=== PATIENT | female | born 1990 | race African-American/Black ===

== ENCOUNTER 2017-05-18 08:41 | Emergency (ER) | payer MEDICAID, OTHER ==
[~2017-05-18] VITALS: Ht 157.5 cm; Wt 70.0 kg
[~2017-05-18 08:41] MED LIST: AMOX875T PO; HYDR-3533 PO; IBUP800T23 PO; MAGICADU2 SWISH-SWAL
[2017-05-18 08:43] VITALS: BP 154/71; PULSE 100; RESP 18; TEMP 98.8; O2SAT 100
[2017-05-18] MEDS ORDERED: SODIUM CHLOR 0.9% 1000 ML INJ 1,000 ML IV ONE (09:44)
[2017-05-18 09:45] VITALS: BP 152/65; PULSE 111; RESP 30; TEMP 98.4; O2SAT 99
[2017-05-18] MEDS ORDERED: SODIUM CHLORIDE 0.9% FLUSH 10 ML FLUSH IVF PRN (09:45)
[2017-05-18] MEDS ORDERED: diphenhydrAMINE HCL 50 MG/ML VIAL IVP ONE (09:45)
[2017-05-18] MEDS ORDERED: PROCHLORPERAZINE INJ 10 MG/2 ML VIAL IVP ONE (09:45)
[2017-05-18 09:52] VITALS: RESP 30; O2SAT 99
[2017-05-18 10:09] LABS: AUTOMATED NEUTROPHIL # 4.4 TH/MM3 (1.8-7.7); BASOPHIL % 0.2 % (0.0-2.0); EOSINOPHIL % 0.2 % (0.0-4.0); HEMATOCRIT 37.6 % (35.0-46.0); HEMO FLAGS DIFF FINAL; LYMPH % 26.2 % (9.0-44.0); LYMPHOCYTE # 1.8 TH/MM3 (1.0-4.8); MEAN CELL VOLUME 72.4 FL (80.0-100.0); MEAN CORPUSCULAR HEMOGLOBIN 23.8 PG (27.0-34.0); MEAN CORPUSCULAR HGB CONC 32.9 % (32.0-36.0); MONO % 9.9 % (0.0-8.0); NEUT % 63.5 % (16.0-70.0); PLATELET COUNT 144 TH/MM3 (150-450); RED BLOOD COUNT 5.19 MIL/MM3 (4.00-5.30); RED CELL DISTRIBUTION WIDTH 13.2 % (11.6-17.2)
[2017-05-18 10:22] LABS: APTT (PATIENT) 26.8 SEC (24.3-30.1); PROTHROMBIN TIME - PATIENT 11.4 SEC (9.8-11.6)
[2017-05-18 10:25] LABS: BICARBONATE 22.7 MEQ/L (21.0-32.0); POTASSIUM 3.9 MEQ/L (3.5-5.1)
--- NOTE | 2017-05-18 10:27 | PD ---
HPI Chief Complaint: Headache Time Seen by Provider: 09:44 Travel History International Travel<30 days: No Contact w/Intl Traveler<30days: No Traveled to known affect area: No History of Present Illness HPI 26 yo F c/o MANRIQUEZ x 6 days, severe radiating from the back of the head to the front. She took that medication which was called "pain reliever" which helped minimally. She denies similar prior episodes. She denies nausea and vomiting. She's had no headache. No visual change. No loss of consciousness. Onset occurred at rest. No pain with rotation or flexion of the neck. She denies photophobia phobia. PFSH Past Medical History Medical History: Denies Significant Hx Diminished Hearing: No ?: Not LMP: 04/07/17 : 2 Para: 2 Past Surgical History Surgical History: No Previous Surgery Section: Yes Social History Alcohol Use: No Tobacco Use: No Substance Use: No Allergies-Medications (Allergen,Severity, Reaction): Coded Allergies: acetaminophen (Unverified Allergy, Severe, 05/18/17) oxycodone (Unverified Allergy, Severe, 05/18/17) Reported Meds & Prescriptions Reported Meds & Active Scripts Active Phenergan (Promethazine HCl) 25 Mg Tablet 25 Mg PO Q6H PRN Review of Systems Except as stated in HPI: all other systems reviewed are Neg General / Constitutional: No: Fever Physical Exam Narrative GENERAL: 18-year-old female pleasant well-nourished well-developed mild distress secondary to pain SKIN: Focused skin assessment warm/dry. HEAD: Atraumatic. Normocephalic. EYES: Pupils equal and round. No scleral icterus. No injection or drainage. ENT: No nasal bleeding or discharge. Mucous membranes pink and moist. NECK: Trachea midline. No JVD. Supple normal range of motion. CARDIOVASCULAR: Tachycardia of about 120-130. RESPIRATORY: No accessory muscle use. Clear to auscultation. Breath sounds equal bilaterally. GASTROINTESTINAL: Abdomen soft, non-tender, nondistended. Hepatic and splenic margins not palpable. MUSCULOSKELETAL: No obvious deformities. No clubbing. No cyanosis. No edema. NEUROLOGICAL: Awake and alert. No obvious cranial nerve deficits. Motor grossly within normal limits. Normal speech. PSYCHIATRIC: Appropriate mood and affect; insight and judgment normal. Data Data Last Documented VS Vital Signs Date Time Temp Pulse Resp B/P (MAP) Pulse Ox O2 Delivery O2 Flow Rate FiO2 05/18/17 12:47 05/18/17 09:52 30 99 Room Air 05/18/17 09:45 98.4 111 Vital signs reviewed Orders Orders Complete Blood Count With Diff (05/18/17 09:44) Basic Metabolic Panel (Bmp) (05/18/17 09:44) Prothrombin Time / Inr (Pt) (05/18/17 09:44) Act Partial Throm Time (Ptt) (05/18/17 09:44) Ct Brain W/O Iv Contrast(Rout) (05/18/17 09:44) Ecg Monitoring (05/18/17 09:44) Iv Access Insert/Monitor (05/18/17 09:44) Oximetry (05/18/17 09:44) Sodium Chloride 0.9% Flush (Ns Flush) (05/18/17 09:45) Prochlorperazine Inj (Compazine Inj) (05/18/17 09:45) Diphenhydramine Inj (Benadryl Inj) (05/18/17 09:45) Sodium Chlor 0.9% 1000 Ml Inj (Ns 1000 M (05/18/17 09:44) Electrocardiogram (05/18/17 09:44) Chest, Single Ap (05/18/17 09:44) Labs Laboratory Tests Test 05/18/17 09:48 White Blood Count 7.0 TH/MM3 Red Blood Count 5.19 MIL/MM3 Hemoglobin 12.4 GM/DL Hematocrit 37.6 % Mean Corpuscular Volume 72.4 FL Mean Corpuscular Hemoglobin 23.8 PG Mean Corpuscular Hemoglobin Concent 32.9 % Red Cell Distribution Width 13.2 % Platelet Count 144 TH/MM3 Mean Platelet Volume 10.5 FL Neutrophils (%) (Auto) 63.5 % Lymphocytes (%) (Auto) 26.2 % Monocytes (%) (Auto) 9.9 % Eosinophils (%) (Auto) 0.2 % Basophils (%) (Auto) 0.2 % Neutrophils # (Auto) 4.4 TH/MM3 Lymphocytes # (Auto) 1.8 TH/MM3 Monocytes # (Auto) 0.7 TH/MM3 Eosinophils # (Auto) 0.0 TH/MM3 Basophils # (Auto) 0.0 TH/MM3 CBC Comment DIFF FINAL Differential Comment Prothrombin Time 11.4 SEC Prothromb Time International Ratio 1.0 RATIO Activated Partial Thromboplast Time 26.8 SEC Blood Urea Nitrogen 9 MG/DL Creatinine 0.53 MG/DL Random Glucose 97 MG/DL Calcium Level 9.2 MG/DL Sodium Level 138 MEQ/L Potassium Level 3.9 MEQ/L Chloride Level 107 MEQ/L Carbon Dioxide Level 22.7 MEQ/L Anion Gap 8 MEQ/L Estimat Glomerular Filtration Rate 166 ML/MIN [facility] Medical Decision Making Medical Screen Exam Complete: Yes Emergency Medical Condition: Yes Medical Record Reviewed: Yes Differential Diagnosis Migraine, meningitis, subarachnoid hemorrhage, subdural hemorrhage, aneurysm, tension headache Narrative Course Patient received abortive therapy Heart rate decreased to about 100, respiratory rate decreased to less than 20, patient speaking full sentences and reports near complete resolution of symptoms Meningitis considered unlikely with normal range of motion of neck and no headache and normal CBC Discharge with Phenergan Workup is as follows: CBC & BMP Diagram 05/18/17 09:48 Calcium Level 9.2 Last [address] 05/18/17943 Signed Impressions: Service Date/Time: Thursday, May 18, 2017 11:21 - CONCLUSION: Negative for acute process. Matthew Samano MD FACR Chest X-Ray 05/18/17943 Signed Impressions: Service Date/Time: Thursday, May 18, 2017 10:21 - CONCLUSION: 1. No acute cardiopulmonary disease. Stephen Aldrich MD Diagnosis Primary Impression: Cephalgia Qualified Codes: R51 - Headache Referrals: Primary Care Physician 2 days Additional Instructions: You have a choice when it comes to health care, and we are glad that you chose [facility]. Hopefully, we have met your expectations on today's visit. You are welcome to return to [facility] at any time, as we are committed to meeting the health care needs of our community. Med/Other Pt SpecificInfo: Prescription(s) given Scripts Promethazine (Phenergan) 25 Mg Tablet 25 MG PO Q6H Y for HEADACHE, #10 TAB 0 Refills Prov: Shen Hurley MD 05/18/17 Disposition: 01 DISCHARGE HOME Condition: Stable hSen Hurley MD May 18, 2017 10:26
--- NOTE | 2017-05-18 10:44 | RADRPT ---
EXAM DATE/TIME: 05/18/2017 10:21 [facility] COMPARISON: No previous studies available for comparison. INDICATIONS : Chest pain. Headache, back pain, and shortness of breath. MEDICAL HISTORY : None. SURGICAL HISTORY : None. ENCOUNTER: Initial ACUITY: 4 - 6 days PAIN SCORE: 0/10 LOCATION: Bilateral chest FINDINGS: A single view of the chest demonstrates the lungs to be symmetrically aerated without evidence of mas s, infiltrate or effusion. The cardiomediastinal contours are unremarkable. Osseous structures are intact. CONCLUSION: 1. No acute cardiopulmonary disease. Stephen Aldrich MD on May 18, 2017 at 10:42 Board Certified Radiologist. This report was verified electronically.
--- NOTE | 2017-05-18 11:40 | RADRPT ---
EXAM DATE/TIME: 05/18/2017 11:21 [facility] COMPARISON: No previous studies available for comparison. INDICATIONS : Headache. RADIATION DOSE: 56.40 CTDIvol (mGy) MEDICAL HISTORY : Sickle cell disease. SURGICAL HISTORY : None. ENCOUNTER: Initial ACUITY: 4 - 6 days PAIN SCALE: 8/10 LOCATION: Bilateral frontal TECHNIQUE: Multiple contiguous axial images were obtained of the head. Using automated exposure control and adj ustment of the mA and/or kV according to patient size, radiation dose was kept as low as reasonably a chievable to obtain optimal diagnostic quality images. DICOM format image data is available electro nically for review and comparison. FINDINGS: CEREBRUM: The ventricles are normal for age. No evidence of midline shift, mass lesion, hemorrhage or acute in farction. No extra-axial fluid collections are seen. POSTERIOR FOSSA: The cerebellum and brainstem are intact. The 4th ventricle is midline. The cerebellopontine angle i s unremarkable. EXTRACRANIAL: The visualized portion of the orbits is intact. SKULL: The calvaria is intact. No evidence of skull fracture. CONCLUSION: Negative for acute process. Matthew Samano MD FACR on May 18, 2017 at 11:38 Board Certified Radiologist. This report was verified electronically.
[2017-05-18] MEDS ORDERED: PROM25TA10 PO (12:05)
--- NOTE | 2017-05-18 13:00 | EKG ---
Date Performed: 05/18/2017 Time Performed: 10:50:32 PTAGE: 26 years EKG: SINUS TACHYCARDIA WITH SHORT LA INTERVAL POSSIBLE LEFT ATRIAL ENLARGEMENT ABNORMAL RHYTHM E CG PREVIOUS TRACING : 08/12/2010 20.58 Compared to previous tracing, heart rate has increased. DOCTOR: Kali Correa Interpretating Date/Time 05/18/2017 12:58:33
== END 2017-05-18 12:49 | disposition home or self-care (01) ==
LOC: NEPD 08:41
DX: R51 Headache (principal); R00.0 Tachycardia, unspecified
CPT/HCPCS: 70450; 71010; 80048; 85025; 85610; 85730; 93005; 96361; 96374; 99285; J0780; J1200; J7030